=== PATIENT | female | born 1950 | race Asian ===

== ENCOUNTER 2017-04-24 22:28 | Emergency (ER) | payer MEDICARE, OTHER ==
[~2017-04-24] VITALS: Ht 152.4 cm; Wt 71.7 kg
[~2017-04-24 22:28] MED LIST: ALBU8.5H5 INH; ESTR0.45 PO; ESTR0.5T PO; GABA300C10 PO; LOVA20TA2 PO; NAPR500T3 PO
[2017-04-24 22:32] VITALS: BP 168/101
[2017-04-24] MEDS ORDERED: PHENYLEPHRINE NASAL 1%, 15ML SPRAY ONE (22:38)
[2017-04-24] MEDS ORDERED: OXYMETAZOLINE NASAL SPRAY 0.05%, 15ML NAS ONE (23:00)
[2017-04-24] MEDS ORDERED: SILVER NITRATE STICK TP ONE (23:03)
== END 2017-04-24 23:57 | disposition home or self-care (01) ==
LOC: ED 23:15
DX: R04.0 Epistaxis (principal)
CPT/HCPCS: 30901; 99284

== ENCOUNTER 2017-04-27 00:17 | Emergency (ER) | payer OTHER ==
[~2017-04-27] VITALS: Ht 172.7 cm; Wt 71.6 kg
[2017-04-27 00:18] VITALS: BP 163/79
[2017-04-27] MEDS ORDERED: OXYMETAZOLINE NASAL SPRAY 0.05%, 15ML ONE (00:23)
== END 2017-04-27 01:43 | disposition home or self-care (01) ==
LOC: ED 01:23
DX: R04.0 Epistaxis (principal); J45.909 Unspecified asthma, uncomplicated; Z90.721 Acquired absence of ovaries, unilateral
CPT/HCPCS: 99281